=== PATIENT | male | born 1945 | race Caucasian/White ===

== ENCOUNTER 2019-08-11 09:22 | Outpatient (CLI) | payer MEDICARE, BC ==
[~2019-08-11 09:22] MED LIST: ATOR40TA PO; BUPR150T8 PO; CLOP75TA15 PO; CYAN500T63 PO; DICL75TA5 PO; FLUO20CA39 PO; KRIL500C PO; LOSA1TAB36 PO; MULT-1085 PO; PANT-47 PO; UBID1CAP54 PO
[2019-08-11] MEDS ORDERED: triamcinolone acetonide 40mg/ml inj IM ONE (09:50)
[2019-08-11] MEDS ORDERED: LIDOcaine 1%/PF 5ML 10 MG/ML VIAL ONE (09:56)
[2019-08-11] MEDS ORDERED: iohexol 300 MG/1 ML 10ml vial ONE (13:00)
== END 2019-08-11 23:59 | disposition home or self-care (01) ==
LOC: RAD 09:22 → EDSTATUS 10:00 → RAD 11:38
PROVIDERS: ATTEND Orthopaedic Surgery
DX: M16.12 Unilateral primary osteoarthritis, left hip (principal); M25.552 Pain in left hip
CPT/HCPCS: 20610; 77002; J3301; Q9967; 73525

== ENCOUNTER 2020-03-24 06:22 | Inpatient (IN) | payer MEDICARE, BC ==
[2020-03-16 11:23] LABS: BASOPHILS # (AUTO) 0.1 X10'3 (0-0.2); BASOPHILS % (AUTO) 0.8 % (0-1); EOSINOPHILS # (AUTO) 0.7 X10'3 (0-0.9); EOSINOPHILS % (AUTO) 8.4 % (0-6); LYMPHOCYTES # (AUTO) 2.3 X10'3 (1.1-4.8); MEAN CORPUSCULAR HGB CONC 34.1 g/dL (33.0-36.5); MEAN CORPUSCULAR VOLUME 90.8 FL (78-98); MEAN PLATELET VOLUME 8.5 FL (7.4-10.4); MONOCYTES # (AUTO) 0.9 X10'3 (0-0.9); MONOCYTES % (AUTO) 10.9 % (2-12); NEUTROPHILS # (AUTO) 4.4 X10'3 (1.8-7.7); NEUTROPHILS % (AUTO) 52.9 % (42-75); PRE OP HEMATOCRIT 42.7 % (42.0-52.0); PRE OP HEMOGLOBIN 14.6 g/dL (14.0-17.9); PRE OP PLATELET COUNT 244 X10'3 (140-440); RED CELL DISTRIBUTION WIDTH 14.4 % (11.5-14.5)
[2020-03-16 11:34] LABS: PRE OP PROTIME 10.8 SECONDS (9.0-12.0)
[2020-03-16 11:38] LABS: ALBUMIN 3.8 G/DL (3.4-5.0); ALBUMIN/GLOBULIN RATIO 1.1 (1.1-1.5); ALKALINE PHOSPHATASE 104 IU/L (46-116); BLOOD UREA NITROGEN 20 MG/DL (7-18); BUN/CREATININE RATIO 14.8 (5.4-32.0); CALCIUM 9.1 MG/DL (8.5-10.1); CHLORIDE 102 MMOL/L (99-107); CREATININE 1.35 MG/DL (0.60-1.10); PRE OP ALT 39 U/L (30-65); PRE OP ANION GAP 9 (8-16); PRE OP AST 24 U/L (10-37); PRE OP BILIRUB, TOTAL 0.6 MG/DL (0.0-1.0); PRE OP GLUCOSE 123 MG/DL (70-104); PRE OP POTASSIUM 4.1 MMOL/L (3.4-5.1); PRE OP SODIUM 136 MMOL/L (135-145); TOTAL PROTEIN 7.2 G/DL (6.4-8.2); eGFR 52 ML/MIN
[~2020-03-24] VITALS: Ht 182.9 cm; Wt 100.3 kg
[2020-03-24] VITALS (16 sets, daily range): BP systolic 60–131; BP diastolic 59–73
[~2020-03-24 06:22] MED LIST changes: +ACIT25CA2 PO; +ALFU10TA PO; +ASPI-611 PO; -BUPR150T8 PO; +CHOL10006 PO; -CYAN500T63 PO; -FLUO20CA39 PO; +KRIL1CAP19 PO; -KRIL500C PO; +MAGN400C PO; +OXYB10TA4 PO; +VITA-268 PO; +ZINC50TA67 PO; +ceFAZolin 2gm in dextrose, iso 50 ML IV ONE; +famotidine 20mg tablet PO ONE; +ringers solution, lacted 1,000 ML IV SCH; +vancomycin 1,500 MG in NS 300ml IV soln IV ONE
[2020-03-24] MEDS ORDERED: vancomycin 1,000mg inj ONE (07:55)
[2020-03-24] MEDS ORDERED: Thrombin (Bovine) 5,000 unit vial TP ONE (07:56)
[2020-03-24] MEDS ORDERED: ceFAZolin 1000mg inj ONE (07:56)
[2020-03-24] MEDS ORDERED: tetracaine 1% (10mg/ml) pres. free inj. ONE (08:07)
[2020-03-24] MEDS ORDERED: BUPIVAcaine/PF 2.5mg/ml (0.25%) 10ml vial ONE (08:32)
[2020-03-24] MEDS ORDERED: morphine /PF 1mg/ml 10ml inj. ONE (08:39)
[2020-03-24] MEDS ORDERED: propofol inj 20 ML IV ONE ×2 (08:57)
[2020-03-24] MEDS ORDERED: MIDAZolam 5mg/5ml vial ONE (08:57)
[2020-03-24] MEDS ORDERED: ePHEDrine 50MG/ML INJ. ONE (09:10)
[2020-03-24] MEDS ORDERED: calcium chloride 100 MG/1 ML inj IV ONE (09:11)
[2020-03-24] MEDS ORDERED: ringers solution, lacted 1,000 ML IV SCH (09:24)
[2020-03-24] MEDS ORDERED: acetaminophen 1,000mg/100ml IV 100 ML IV PRN (09:25)
[2020-03-24] MEDS ORDERED: proCHLORperazine 10 MG/2 ml inj IV PRN (09:25)
[2020-03-24] MEDS ORDERED: ondansetron/PF 4mg/2ml inj IV PRN ×2 (09:25→09:30)
[2020-03-24] MEDS ORDERED: HYDROmorphone inj. 0.5 MG/0.5 ML DISP.SYRIN IV PRN ×3 (09:25→11:05)
[2020-03-24] MEDS ORDERED: meperidine/PF 25mg/ml syringe IV PRN ×3 (09:25)
[2020-03-24] MEDS ORDERED: naloxone 2mg/2ml inj 2 MG in normal saline 500ml IV soln 500 ML IV PRN (09:26)
[2020-03-24] MEDS ORDERED: diphenhydrAMINE 50 mg/ml inj IV PRN (09:30)
--- NOTE | 2020-03-24 10:27 | NUR ---
Received from OR via , accompanied by Anesthesiologist DR MELÉDNEZ and report given by Anesthesiolgist. AWAKENS TO VOICE. VITALS STABLE. DRESSING DI. GUIDO PAIN. SENSATION AT MID ABD. BOLANOS WITH CLEAR URINE.
[2020-03-24] MEDS ORDERED: bisacodyl 10mg suppository rectal RC PRN (11:05)
[2020-03-24] MEDS ORDERED: acetaminophen 325mg tablet PO PRN (11:05)
[2020-03-24] MEDS ORDERED: oxyCODONE IR 5mg (immed. release) tablet PO PRN ×2 (11:05)
[2020-03-24] MEDS ORDERED: HYDROmorphone 1 mg/ml syringe IV PRN (11:05)
[2020-03-24] MEDS ORDERED: magnesium hydroxide 30ml (MOM) UD suspension PO PRN (11:05)
[2020-03-24] MEDS ORDERED: diphenhydrAMINE 25mg capsule PO PRN ×2 (11:05)
--- NOTE | 2020-03-24 11:41 | NUR ---
INNITIAL ASSES,ENT AND NURSING NOTE CHARTED WITH WRONG TIME. CHARTED 1027 AND WAS ACTUALLY 1127
--- NOTE | 2020-03-24 12:47 | NUR ---
Report called to receiving nurse. Transferred via [] Belongings []. Special Issues communicated to receiving nurse.
[2020-03-24] MEDS: potassium cl 20mEq in 1/2 NS 1,000 ML IV SCH ×2 (14:04→17:29)
[2020-03-24] MEDS: acetaminophen 325mg tablet PO SCH ×2 (14:05→23:20)
[2020-03-24] MEDS: gabapentin 300mg capsule PO SCH ×2 (14:05→23:20)
[2020-03-24] MEDS: ceFAZolin 1GM/D5W- ADD-VANTAGE 50 ML IV SCH ×2 (16:36→23:43)
[2020-03-24] MEDS: metoclopramide 5 mg/ml inj IV PRN ×2 (17:25→23:26)
--- NOTE | 2020-03-24 18:24 | NUR ---
Problems reprioritized. Patient report given, questions answered & plan of care reviewed with Clotilde MATTHEWS .
[2020-03-24] MEDS ORDERED: vancomycin/NS 1 GM ADD-VANTAGE 250 ML IV SCH (20:00)
[2020-03-24] MEDS: ondansetron/PF 4mg/2ml inj IV PRN (20:46)
--- NOTE | 2020-03-24 20:54 | NUR ---
nausea noted. zofran given. will hold pm meds until able to swallow. using IS well
[2020-03-24] MEDS: sennosides 8.6mg tablet PO SCH (23:17)
[2020-03-24] MEDS: atorvastatin 20mg tablet PO SCH (23:17)
[2020-03-24] MEDS: oxybutynin 5mg tablet PO SCH (23:18)
--- NOTE | 2020-03-24 23:38 | NUR ---
pt requested to wait for pain medication. "the nausea is way worse than the pain"
[2020-03-25] MEDS: acetaminophen 325mg tablet PO SCH ×5 (01:45→19:45)
[2020-03-25 02:13] VITALS: BP 108/64
--- NOTE | 2020-03-25 04:00 | NUR ---
pt declined pain medication except for tylenol. "I only have a little sore muscle on my quad".
[2020-03-25] MEDS: potassium cl 20mEq in 1/2 NS 1,000 ML IV SCH ×2 (04:31→11:49)
[2020-03-25 06:10] VITALS: BP 95/58
[2020-03-25 06:26] LABS: BASOPHILS % (AUTO) 0.2 % (0-1); EOSINOPHILS # (AUTO) 0.2 X10'3 (0-0.9); EOSINOPHILS % (AUTO) 2.6 % (0-6); HEMATOCRIT 34.5 % (42.0-52.0); HEMOGLOBIN 11.9 g/dl (14.0-17.9); LYMPHOCYTES # (AUTO) 1.6 X10'3 (1.1-4.8); LYMPHOCYTES % (AUTO) 18.9 % (21-51); MEAN CORPUSCULAR HEMOGLOBIN 30.9 PG (27.0-31.0); MEAN CORPUSCULAR HGB CONC 34.5 g/dL (33.0-36.5); MEAN CORPUSCULAR VOLUME 89.5 FL (78-98); MEAN PLATELET VOLUME 8.2 FL (7.4-10.4); MONOCYTES % (AUTO) 12.6 % (2-12); NEUTROPHILS # (AUTO) 5.4 X10'3 (1.8-7.7); NEUTROPHILS % (AUTO) 65.7 % (42-75); PLATELET COUNT 194 X10'3 (140-440); RED BLOOD COUNT 3.85 X10'6 (4.70-6.10); RED CELL DISTRIBUTION WIDTH 13.5 % (11.5-14.5); WHITE BLOOD COUNT 8.3 X10'3 (4.5-11.0)
--- NOTE | 2020-03-25 06:39 | NUR ---
Patient in room [facility]TH[facility] 4016. I have received report from Radha MATTHEWS and had the opportunity to ask questions and assume patient care.
[2020-03-25 07:07] LABS: ANION GAP 6 (8-16); CHLORIDE 101 MMOL/L (99-107); POTASSIUM 4.5 MMOL/L (3.5-5.1); SODIUM 135 MMOL/L (135-145); TOTAL CARBON DIOXIDE 28.3 MMOL/L (24-32)
[2020-03-25] MEDS: ondansetron/PF 4mg/2ml inj IV PRN (07:49)
[2020-03-25] MEDS ORDERED: non-formulary drug (Krill/Om-3/Dha/Epa/Phospho/Ast (Krill Oil 500 mg Softgel) 1 TAB) PO SCH (08:00)
[2020-03-25] MEDS ORDERED: HYDROchlorothiazide 12.5mg capsule PO SCH (08:00)
[2020-03-25] MEDS ORDERED: losartan 50mg tablet PO SCH (08:00)
[2020-03-25] MEDS ORDERED: enoxaparin 40mg/0.4ml syringe SQ SCH (08:00)
[2020-03-25] MEDS ORDERED: VIT E ACETATE PO SCH (08:00)
[2020-03-25] MEDS ORDERED: UBIDECARENONE PO SCH (08:00)
[2020-03-25] MEDS: pantoprazole 40mg Tablet.DR PO SCH (08:00)
[2020-03-25] MEDS ORDERED: DICLOFENAC SODIUM 75 MG PO SCH (08:00)
[2020-03-25] MEDS ORDERED: clopidogrel 75mg tablet PO SCH (08:00)
[2020-03-25] MEDS: gabapentin 300mg capsule PO SCH ×3 (09:00→19:44)
[2020-03-25] MEDS: vitamin D (cholecalciferol) 1,000 unit tablet PO SCH (09:00)
[2020-03-25] MEDS: magnesium oxide 400mg tablet PO SCH (09:01)
[2020-03-25] MEDS: zinc sulfate 220mg capsule PO SCH (09:01)
[2020-03-25] MEDS: multivitamins, therapeutics tablet PO SCH (09:01)
[2020-03-25] MEDS: oxybutynin 5mg tablet PO SCH ×2 (09:01→19:44)
[2020-03-25] MEDS: vitamin B comp w/Vit. C tab 1 TAB TABLET PO SCH (09:01)
[2020-03-25] MEDS: tamsulosin 0.4mg capsule PO SCH (09:01)
[2020-03-25] MEDS: aspirin 81mg tab.chew PO SCH (09:03)
[2020-03-25 10:00] VITALS: BP 101/68
[2020-03-25 14:00] VITALS: BP 113/66
--- NOTE | 2020-03-25 14:25 | NUR ---
Joint Replacement Consult: Pt s/p L hip surgery. Pt noted to be nauseous; sleeping w/ emesis bag during RD visit. Written high protein ed w/ RD contact information left at bedside. Will monitor for additional protein needs this admit. Addendum: 03/25/20 at [address] Amended: Links added.
[2020-03-25] MEDS ORDERED: methylPREDNISolone sod succ 125mg/2ml vial IV ONE (17:30)
[2020-03-25] MEDS ORDERED: magnesium Cl slow-release 64mg tablet PO PRN (17:30)
[2020-03-25] MEDS ORDERED: potassium Cl 20 mEq SR tablet PO PRN ×2 (17:30)
[2020-03-25] MEDS ORDERED: potassium CL 10mEq/100ml bag 100 ML IV PRN (17:30)
[2020-03-25] MEDS ORDERED: magnesium 4gm in 100ml NS 100 ML IV PRN (17:30)
[2020-03-25] MEDS: normal saline 1000ml 1,000 ML IV SCH (17:47)
[2020-03-25] MEDS: levoFLOXACIN-Levaquin 750MG/D5 150 ML IV SCH (17:47)
[2020-03-25 18:00] VITALS: BP 118/46
--- NOTE | 2020-03-25 18:30 | NUR ---
Patient report given to Radha
[2020-03-25] MEDS: traMADol 50MG tablet PO PRN (19:43)
[2020-03-25] MEDS: atorvastatin 20mg tablet PO SCH (19:44)
[2020-03-25] MEDS: methylPREDNISolone sod succ/PF 40mg inj. IV SCH (19:45)
[2020-03-25] MEDS: ipratropium/albuterol 3ml nebule NEB SCH ×2 (19:46→23:07)
[2020-03-25] MEDS: sennosides 8.6mg tablet PO SCH (19:51)
[2020-03-25] MEDS ORDERED: carVEDilol 3.125mg tablet PO SCH (20:00)
[2020-03-25] MEDS ORDERED: celeCOXIB 100mg capsule PO SCH (20:00)
[2020-03-25 23:00] VITALS: BP 139/67
[2020-03-26] MEDS: acetaminophen 325mg tablet PO SCH ×2 (02:19→10:45)
[2020-03-26] MEDS: methylPREDNISolone sod succ/PF 40mg inj. IV SCH ×3 (02:19→16:10)
[2020-03-26] MEDS: ipratropium/albuterol 3ml nebule NEB SCH ×2 (03:05→07:26)
[2020-03-26] MEDS: traMADol 50MG tablet PO PRN ×3 (05:33→21:12)
[2020-03-26 06:10] VITALS: BP 123/66
--- NOTE | 2020-03-26 06:30 | NUR ---
Patient in room [facility]TH[facility] 4016. I have received report from Radha MATTHEWS and had the opportunity to ask questions and assume patient care.
[2020-03-26 06:40] LABS: BASOPHILS % (AUTO) 0.1 % (0-1); EOSINOPHILS % (AUTO) 0 % (0-6); HEMATOCRIT 34.1 % (42.0-52.0); HEMOGLOBIN 11.6 g/dl (14.0-17.9); LYMPHOCYTES # (AUTO) 0.8 X10'3 (1.1-4.8); LYMPHOCYTES % (AUTO) 5.5 % (21-51); MEAN CORPUSCULAR HEMOGLOBIN 30.3 PG (27.0-31.0); MEAN CORPUSCULAR VOLUME 89.2 FL (78-98); MEAN PLATELET VOLUME 8.6 FL (7.4-10.4); MONOCYTES # (AUTO) 0.8 X10'3 (0-0.9); MONOCYTES % (AUTO) 5.2 % (2-12); NEUTROPHILS # (AUTO) 13.3 X10'3 (1.8-7.7); NEUTROPHILS % (AUTO) 89.2 % (42-75); PLATELET COUNT 184 X10'3 (140-440); RED BLOOD COUNT 3.82 X10'6 (4.70-6.10); RED CELL DISTRIBUTION WIDTH 13.5 % (11.5-14.5); WHITE BLOOD COUNT 14.9 X10'3 (4.5-11.0)
[2020-03-26] MEDS: normal saline 1000ml 1,000 ML IV SCH (06:40)
[2020-03-26 06:50] LABS: ALANINE AMINOTRANSFERASE 23 U/L (12-78); ALBUMIN 2.7 G/DL (3.4-5.0); ALBUMIN/GLOBULIN RATIO 0.9 (1.1-1.5); ALKALINE PHOSPHATASE 62 IU/L (46-116); ANION GAP 6 (8-16); ASPARTATE AMINO TRANSFERASE 23 U/L (10-37); BILIRUBIN,TOTAL 0.8 MG/DL (0.1-1.0); BLOOD UREA NITROGEN 12 MG/DL (7-18); BUN/CREATININE RATIO 11.7 (5.4-32.0); CALCIUM 8.6 MG/DL (8.5-10.1); CHLORIDE 101 MMOL/L (99-107); CREATININE 1.03 MG/DL (0.60-1.10); GLUCOSE 178 MG/DL (70-104); MAGNESIUM 1.5 MG/DL (1.5-2.4); PHOSPHORUS 2.2 MG/DL (2.3-4.5); POTASSIUM 4.4 MMOL/L (3.5-5.1); SODIUM 133 MMOL/L (135-145); TOTAL CARBON DIOXIDE 26.2 MMOL/L (24-32); TOTAL PROTEIN 5.8 G/DL (6.4-8.2); eGFR 71 ML/MIN
[2020-03-26 10:00] VITALS: BP 121/62
[2020-03-26] MEDS: enoxaparin 40mg/0.4ml syringe SUBCUT SCH (10:42)
[2020-03-26] MEDS: tamsulosin 0.4mg capsule PO SCH (10:43)
[2020-03-26] MEDS: vitamin B comp w/Vit. C tab 1 TAB TABLET PO SCH (10:43)
[2020-03-26] MEDS: multivitamins, therapeutics tablet PO SCH (10:43)
[2020-03-26] MEDS: zinc sulfate 220mg capsule PO SCH (10:43)
[2020-03-26] MEDS: pantoprazole 40mg Tablet.DR PO SCH (10:44)
[2020-03-26] MEDS: gabapentin 300mg capsule PO SCH ×3 (10:44→21:12)
[2020-03-26] MEDS: aspirin 81mg tab.chew PO SCH (10:44)
[2020-03-26] MEDS: vitamin D (cholecalciferol) 1,000 unit tablet PO SCH (10:44)
[2020-03-26] MEDS: oxybutynin 5mg tablet PO SCH ×2 (10:44→21:14)
[2020-03-26] MEDS: levoFLOXACIN-Levaquin 750MG/D5 150 ML IV SCH (10:47)
[2020-03-26] MEDS: magnesium oxide 400mg tablet PO SCH (10:47)
[2020-03-26] MEDS ORDERED: magnesium 4gm in 100ml NS 100 ML IV ONE (11:05)
[2020-03-26] MEDS ORDERED: acetaminophen 325mg tablet PO PRN (11:05)
[2020-03-26] MEDS ORDERED: ipratropium/albuterol 3ml nebule NEB PRN (11:05)
[2020-03-26] MEDS: losartan 25mg tablet PO SCH (11:11)
--- NOTE | 2020-03-26 14:45 | NUR ---
Dr. Enciso notified of patient 6 beat run of v-tach via page
[2020-03-26 18:00] VITALS: BP 120/63
--- NOTE | 2020-03-26 18:37 | NUR ---
Problems reprioritized. Patient report given, questions answered & plan of care reviewed with Radha MATTHEWS.
[2020-03-26] MEDS: atorvastatin 20mg tablet PO SCH (21:13)
[2020-03-26] MEDS: sennosides 8.6mg tablet PO SCH (21:13)
[2020-03-26] MEDS: lactobacillus rhamnosus 10,000 MMU CELLS/CAPSULE PO SCH (21:14)
[2020-03-26 22:00] VITALS: BP 126/59
[2020-03-26] MEDS ORDERED: CEFD300C3 PO (22:35)
[2020-03-26] MEDS ORDERED: PRED10TA23 PO (22:35)
[2020-03-26] MEDS ORDERED: ALBU8.5H8 INH (22:35)
[2020-03-26] MEDS ORDERED: LOSA25TA41 PO (22:35)
[2020-03-26] MEDS ORDERED: LACT1CAP26 PO (22:35)
[2020-03-27] MEDS: traMADol 50MG tablet PO PRN (05:29)
--- NOTE | 2020-03-27 06:00 | NUR ---
reported to days. noted pt anticipates discharge today. no ectopy this noc.
[2020-03-27 06:10] VITALS: BP 112/71
--- NOTE | 2020-03-27 06:27 | NUR ---
Patient in room [facility]TH[facility] 4016. I have received report from Radha MATTHEWS and had the opportunity to ask questions and assume patient care.
[2020-03-27 06:48] LABS: BASOPHILS % (AUTO) 0.1 % (0-1); EOSINOPHILS % (AUTO) 0 % (0-6); HEMATOCRIT 31.9 % (42.0-52.0); LYMPHOCYTES # (AUTO) 1.4 X10'3 (1.1-4.8); LYMPHOCYTES % (AUTO) 6.4 % (21-51); MEAN CORPUSCULAR HEMOGLOBIN 31.1 PG (27.0-31.0); MEAN CORPUSCULAR HGB CONC 34.5 g/dL (33.0-36.5); MEAN PLATELET VOLUME 8.8 FL (7.4-10.4); MONOCYTES # (AUTO) 1.9 X10'3 (0-0.9); MONOCYTES % (AUTO) 9.1 % (2-12); NEUTROPHILS # (AUTO) 17.8 X10'3 (1.8-7.7); NEUTROPHILS % (AUTO) 84.4 % (42-75); PLATELET COUNT 195 X10'3 (140-440); RED BLOOD COUNT 3.54 X10'6 (4.70-6.10)
[2020-03-27 06:51] LABS: ALANINE AMINOTRANSFERASE 28 U/L (12-78); ALBUMIN 2.6 G/DL (3.4-5.0); ALBUMIN/GLOBULIN RATIO 0.8 (1.1-1.5); ALKALINE PHOSPHATASE 54 IU/L (46-116); ANION GAP 5 (8-16); ASPARTATE AMINO TRANSFERASE 28 U/L (10-37); BILIRUBIN,TOTAL 0.5 MG/DL (0.1-1.0); BLOOD UREA NITROGEN 20 MG/DL (7-18); BUN/CREATININE RATIO 20.4 (5.4-32.0); CALCIUM 8.4 MG/DL (8.5-10.1); CHLORIDE 102 MMOL/L (99-107); CREATININE 0.98 MG/DL (0.60-1.10); GLUCOSE 157 MG/DL (70-104); PHOSPHORUS 2.5 MG/DL (2.3-4.5); POTASSIUM 4.5 MMOL/L (3.5-5.1); SODIUM 134 MMOL/L (135-145); TOTAL CARBON DIOXIDE 27.5 MMOL/L (24-32); TOTAL PROTEIN 5.8 G/DL (6.4-8.2); eGFR 75 ML/MIN
[2020-03-27] MEDS: zinc sulfate 220mg capsule PO SCH (07:40)
[2020-03-27] MEDS: enoxaparin 40mg/0.4ml syringe SUBCUT SCH (07:40)
[2020-03-27] MEDS: aspirin 81mg tab.chew PO SCH (07:40)
[2020-03-27] MEDS: vitamin B comp w/Vit. C tab 1 TAB TABLET PO SCH (07:40)
[2020-03-27] MEDS: pantoprazole 40mg Tablet.DR PO SCH (07:40)
[2020-03-27] MEDS: multivitamins, therapeutics tablet PO SCH (07:40)
[2020-03-27] MEDS: losartan 25mg tablet PO SCH (07:40)
[2020-03-27] MEDS: tamsulosin 0.4mg capsule PO SCH (07:41)
[2020-03-27] MEDS: vitamin D (cholecalciferol) 1,000 unit tablet PO SCH (07:41)
[2020-03-27] MEDS: magnesium oxide 400mg tablet PO SCH (07:42)
[2020-03-27] MEDS: oxybutynin 5mg tablet PO SCH (07:42)
[2020-03-27] MEDS: lactobacillus rhamnosus 10,000 MMU CELLS/CAPSULE PO SCH (07:42)
[2020-03-27] MEDS: gabapentin 300mg capsule PO SCH (07:42)
[2020-03-27] MEDS ORDERED: predniSONE 20 mg tablet PO SCH (08:00)
[2020-03-27] MEDS ORDERED: CefTRIAXone/D5W-Rocephin 1gm 50 ML IV SCH (08:00)
[2020-03-27 10:00] VITALS: BP 112/54
--- NOTE | 2020-03-30 10:25 | NUR ---
Case Management DC follow up: spoke to pt spouse, Dylon, via telephone. s/p:LTHA. Reports:"doing a little better each day". Denies s/s infection to surg sight. denies swelling, redness, tenderness to L leg. pt spouse asking about DU, no instructions. Ok to remove, dry, no drainage. clean, pat dry, cover w/bandage or air dry. Call Dr Isaac office to confirm. pt c/o no aftercare instructions given as well, unable to be in hospital per COVID protocol, so was not there if aftercare instructions were relayed, pt does not remember, no printout given to pt. pt spouse was not sure if pt was administered am medications, would have liked something on DC papers w/confirmation of what meds pt did receive. Denies for pt: acute/continuous CP, emergent SOB, resp distress, N/V, TAYLOR, blurry vision, vertigo, syncope episodes, weakness,emergent general pain, abd tenderness/distension, bladder pain, dysuria, polyuria, hematuria, retention, constipation, diarrhea, fever, unexplained bleeding, bruising. Verbalizes understanding of s/s that warrant 9-11/ER visit for further evaluation. Verbalizes understanding of new Rx and why prescribed, resumes current Rx, taking as ordered, no ase r/t polypharmacy. Acknowledges need to schedule/keep follow up appts w/ PCP/Joshua, [facility] will call to schedule, [employer] Operator/Carlo, event monitor, will call to schedule; Dr Isaac, surgeon, scheduled. pt agrees to contact Dr Isaac office r/t after care instructions. Educated pt on phone, and advised pt to call to confirm, and address any/all concerns r/t aftercare. Needs met, questions answered at DC, no further questions or concerns at this time.
== END 2020-03-27 12:36 | disposition home or self-care (01) | DRG 470 ==
LOC: PAS IN 06:22 → UNDOADMIN 06:22 → EDSTATUS 08:30 → PAS IN 11:03 → ORTHO 4S 12:45 → PAS IN 12:45
PROVIDERS: ADMIT Orthopaedic Surgery; ATTEND Orthopaedic Surgery
PROC: 0SRB06Z Replacement of Left Hip Joint with Oxidized Zirconium on Polyethylene Synthetic Substitute, Open Approach (ICD-10-PCS; principal; 2020-03-24 08:32)
DX: M16.12 Unilateral primary osteoarthritis, left hip (principal); J44.1 Chronic obstructive pulmonary disease with (acute) exacerbation; D62 Acute posthemorrhagic anemia; E78.5 Hyperlipidemia, unspecified; G47.33 Obstructive sleep apnea (adult) (pediatric); I10 Essential (primary) hypertension; I25.10 Atherosclerotic heart disease of native coronary artery without angina pectoris; K21.9 Gastro-esophageal reflux disease without esophagitis; E87.70 Fluid overload, unspecified; N32.81 Overactive bladder; R00.1 Bradycardia, unspecified; T44.7X5A Adverse effect of beta-adrenoreceptor antagonists, initial encounter; N40.1 Benign prostatic hyperplasia with lower urinary tract symptoms; F12.90 Cannabis use, unspecified, uncomplicated; R00.0 Tachycardia, unspecified; R06.03 Acute respiratory distress; R09.02 Hypoxemia; Z79.02 Long term (current) use of antithrombotics/antiplatelets; Z79.82 Long term (current) use of aspirin; Z79.899 Other long term (current) drug therapy; Z87.891 Personal history of nicotine dependence; Z95.5 Presence of coronary angioplasty implant and graft; Y92.89 Other specified places as the place of occurrence of the external cause
CPT/HCPCS: 36415; 71045; 72170; 73502; 80051; 80053; 82948; 83735; 84100; 84443; 85025; 85610; 85730; 86885; 86900; 86901; 87081; 93880; 94640; 94760; 97110; 97116; 97162; 97530; A4215; A4618; A7000; C1758; C1776; G0378; J0690; J0696; J1650; J1956; J2250; J2270; J2405; J2704; J2765; J2920; J2930; J3370; J3475; J3480; J3490; J7030; J7040; J7120; J7512